=== PATIENT | female | born 1970 | race Caucasian/White ===

== ENCOUNTER → 2016-07-10 | Outpatient (CLI) | payer BC ==
[~2016-07-10] MED LIST: BUTA1CAP17 PO; CIPR-255 PO; CLON0.5T3 PO; HYDR-4079 PO; HYDR-5688 PO; HYDRTAB32 PO; KETO10TA PO; OMEP20CA9 PO; ONDA4TAB10 SL; OXYC-57 PO; RIZA10TA18 PO; SERT1TAB68 PO; TAMS0.4C38 PO; TIZA2CAP PO; TRAM-10 PO
== END | disposition home or self-care (01) ==
LOC: C.PAPS 11:02
PROVIDERS: ATTEND Obstetrics & Gynecology
DX: R87.610 Atypical squamous cells of undetermined significance on cytologic smear of cervix (ASC-US) (principal)

== ENCOUNTER 2016-07-12 11:32 | Emergency (ER) | payer BC ==
[~2016-07-12] VITALS: Ht 165.1 cm; Wt 57.7 kg
[~2016-07-12 11:32] MED LIST changes: -CIPR-255 PO; -HYDR-4079 PO; -HYDR-5688 PO; -KETO10TA PO; -ONDA4TAB10 SL; -OXYC-57 PO; -TAMS0.4C38 PO
[2016-07-12 11:35] VITALS: TEMP 36.9; Ht 165.1 cm; Wt 57.7 kg
[2016-07-12] MEDS ORDERED: KETOROLAC TROMETHAMINE 30 MG/ML VIAL IV STA (11:48)
[2016-07-12] MEDS ORDERED: ACETAMINOPHEN 500 MG TAB PO STA (11:48)
[2016-07-12] MEDS ORDERED: ONDANSETRON INJ 2 MG/ML 2 ML VIAL IV STA (11:48)
[2016-07-12] MEDS ORDERED: HYDROmorphone INJ 1 MG/ML SYR IV STA ×2 (11:48)
[2016-07-12] MEDS ORDERED: SODIUM CHLORIDE 0.9% 1000ML 1,000 ML IV STA (11:48)
[2016-07-12 11:59] LABS: BASO % 0.2 %; BASO ABS # 0.01 K/uL (0-0.2); COMPLETE YES; EOS % 0.8 %; HEMATOCRIT 40.4 % (37-47); LYMPH % 19.9 %; LYMPH ABS # 1.05 K/uL (1.2-3.4); MEAN CELL VOLUME 92.4 fL (80-100); MEAN CORPUSCULAR HGB CONC 34.7 g/dl (32-36); MONO % 7.4 %; NEUT % 71.7 %; PLATELET COUNT 158 K/uL (130-400); RED BLOOD COUNT 4.37 M/uL (4.2-5.4); WHITE BLOOD COUNT 5.27 K/uL (4.8-10.8)
--- NOTE | 2016-07-12 12:07 | EMERGENCY ROOM VISIT NOTE ---
History Report prepared by Carlitos: Francisco Miller Under the Supervision of: Dr. Horace Foster M.D. First contact with patient: 11:41 Chief Complaint: ABDOMINAL PAIN Stated Complaint: SEVERE ABD. PAIN Nursing Triage Summary: abdominal pain started 5 am. denies any n/v/d History of Present Illness The patient is a 46 year old female who presents to the Emergency Room with complaints of abdominal pain that began 7 hours ago. The patient rates her pain an 8/10 in severity. She took an Oxycodone tablet a couple hours ago which helped her fall back asleep. When she woke up, the patient was still having the pain. She denies any nausea, vomiting, or diarrhea. She has her gallbladder and does not have her appendix. She is also experiencing some right flank pain as well. Source of History: patient Onset: 7 hours ago Position: abdomen (RQ) Symptom Intensity: 8/10 Quality: sharp Timing: constant Modifying Factors (Relieving): other (Oxycodone) Associated Symptoms: + back pain (right flank), No diarrhea, No nausea, No vomiting Review of Systems See HPI for pertinent positives & negatives. A total of 10 systems reviewed and were otherwise negative. Past Medical & Surgical Medical Problems: (1) Anxiety (2) Headache (3) Right shoulder surgery Family History FHx: pancreatic cancer Social History Smoking Status: Never Smoker Alcohol Use: occasionally Marital Status: Housing Status: lives with family Occupation Status: employed Current/Historical Medications Scheduled Omeprazole (Prilosec), 20 MG PO QPM Ondasetron Odt (Zofran Odt), 4 MG SL Q6H Rizatriptan Benzoate (Maxalt), 10 MG PO prn Sertraline Hcl (Zoloft), 100 MG PO QPM Tamsulosin Hcl (Flomax), 0.4 MG PO DAILY Scheduled PRN Rhoritktpe-Qwpaulemciukj-Lbdtx (Fioricet), 1 CAP PO DAILY PRN for Migraine Clonazepam (Klonopin), 0.5 MG PO DAILY PRN for Anxiety Hydrocodone/Acetaminophen 10MG/500MG (Lortab 10MG/500MG), 1 TAB PO Q6 PRN for Pain Oxycodone/Acetaminophen 5MG/325MG (Percocet 5MG/325MG), 1-2 TABS PO Q4H PRN for Pain Tizanidine (Zanaflex), 2 MG PO DAILY PRN for Migraine Tramadol (Ultram), 1-2 TAB PO TID PRN for Migraine Allergies Coded Allergies: Diphenhydramine (Verified Allergy, Intermediate, JERKING, 07/12/16) Sumatriptan (Unverified Allergy, Unknown, chest pain, 07/12/16) Physical Exam Vital Signs Date Time Temp Pulse Resp B/P Pulse Ox O2 Delivery O2 Flow Rate FiO2 07/12/16 13:49 73 18 108/68 98 07/12/16 12:36 72 16 114/62 97 Room Air 07/12/16 11:35 36.9 92 18 123/81 97 Room Air Physical Exam CONSTITUTIONAL: Moderate to severe painful distress HEENT: No icterus, moist mucous membranes NECK: No meningismus, trachea is midline. CARDIOVASCULAR: Regular rate, normal perfusion RESPIRATORY: Unlabored breathing. Clear to auscultation. GASTROINTESTINAL: Moderate right sided abdominal pain. BACK: Moderate right sided flank pain. GENITOURINARY: No flank tenderness MUSCULOSKELETAL: Full range of motion NEUROLOGIC: No acute gross focal deficits. PSYCHIATRIC: Normal affect SKIN: Normal for ethnicity. Medical Decision & Procedures ER Provider Diagnostic Interpretation: Radiology results are stated below per my review and radiologist interpretation. CT OF THE ABDOMEN AND PELVIS WITHOUT CONTRAST, STONE PROTOCOL CLINICAL HISTORY: Right flank pain. COMPARISON STUDY: CT of the abdomen and pelvis May 31, 2013. TECHNIQUE: Helical axial images of the abdomen and pelvis were obtained without IV or oral contrast according to renal stone protocol. FINDINGS: There is moderate right hydroureteronephrosis due to a 4 mm distal right ureteral calculus. There is associated mild perinephric and periureteral ureteral infiltration. A right renal calculus is noted, measuring 4 mm. There may be punctate left renal calculi. A few subpleural nodules within visualized portions of the lower lungs are unchanged since CT of May 31, 2013. These are benign. Evaluation of the abdomen and pelvis is suboptimal on this unenhanced exam. The liver, spleen, adrenal glands and pancreas are normal. There is no evidence for a bowel obstruction. There is no lymphadenopathy. The appendix is normal. Sclerotic skeletal lesions are unchanged since prior CT. These are benign. The ovaries are not enlarged. IMPRESSION: 1. 4 mm distal right ureteral calculus with resultant moderate right hydroureteronephrosis. 2. 4 mm right renal calculus. Electronically signed by: Naldo Pereyra M.D. 07/12/2016 12:32 PM Dictated Date/Time: 07/12/2016 12:26 PM Laboratory Results 07/12/16 11:50 Red Blood Count 4.37, Mean Corpuscular Volume 92.4, Mean Corpuscular Hemoglobin 32.0, Mean Corpuscular Hemoglobin Concent 34.7, Mean Platelet Volume 10.0, Neutrophils (%) (Auto) 71.7, Lymphocytes (%) (Auto) 19.9, Monocytes (%) (Auto) 7.4, Eosinophils (%) (Auto) 0.8, Basophils (%) (Auto) 0.2, Neutrophils # (Auto) 3.78, Lymphocytes # (Auto) 1.05, Monocytes # (Auto) 0.39, Eosinophils # (Auto) 0.04, Basophils # (Auto) 0.01 07/12/16 11:50 Test 07/12/16 11:50 White Blood Count 5.27 K/uL (4.8-10.8) Red Blood Count 4.37 M/uL (4.2-5.4) Hemoglobin 14.0 g/dL (12.0-16.0) Hematocrit 40.4 % (37-47) Mean Corpuscular Volume 92.4 fL (80-100) Mean Corpuscular Hemoglobin 32.0 pg (25-34) Mean Corpuscular Hemoglobin Concent 34.7 g/dl (32-36) Platelet Count 158 K/uL (130-400) Mean Platelet Volume 10.0 fL (7.4-10.4) Neutrophils (%) (Auto) 71.7 % Lymphocytes (%) (Auto) 19.9 % Monocytes (%) (Auto) 7.4 % Eosinophils (%) (Auto) 0.8 % Basophils (%) (Auto) 0.2 % Neutrophils # (Auto) 3.78 K/uL (1.4-6.5) Lymphocytes # (Auto) 1.05 K/uL (1.2-3.4) Monocytes # (Auto) 0.39 K/uL (0.11-0.59) Eosinophils # (Auto) 0.04 K/uL (0-0.5) Basophils # (Auto) 0.01 K/uL (0-0.2) RDW Standard Deviation 41.3 fL (36.4-46.3) RDW Coefficient of Variation 12.1 % (11.5-14.5) Immature Granulocyte % (Auto) 0.0 % Immature Granulocyte # (Auto) 0.00 K/uL (0.00-0.02) Urine Color DK YELLOW Urine Appearance CLEAR (CLEAR) Urine pH 5.0 (4.5-7.5) Urine Specific [place] 1.037 (1.000-1.030) Urine Protein NEG (NEG) Urine Glucose (UA) NEG (NEG) Urine Ketones NEG (NEG) Urine Occult Blood 3+ (NEG) Urine Nitrite NEG (NEG) Urine Bilirubin NEG (NEG) Urine Urobilinogen NEG (NEG) Urine Leukocyte Esterase NEG (NEG) Urine WBC (Auto) 5-10 /hpf (0-5) Urine RBC (Auto) >30 /hpf (0-4) Urine Hyaline Casts (Auto) 1-5 /lpf (0-5) Urine Epithelial Cells (Auto) >30 /lpf (0-5) Urine Bacteria (Auto) 1+ (NEG) Anion Gap 9.0 mmol/L (3-11) Est Creatinine Clear Calc Drug Dose 61.9 ml/min Estimated GFR () 77.2 Estimated GFR (Non- 66.6 BUN/Creatinine Ratio 21.1 (10-20) Calcium Level 8.5 mg/dl (8.5-10.1) Labs reviewed by ED physician. Medications Administered Medications (Trade) Dose Ordered Sig/Rosa Route Start Time Stop Time Status Last Admin Dose Admin Acetaminophen 1000 mg 1,000 mg NOW STAT PO 07/12/16 11:48 07/12/16 11:52 DC 07/12/16 12:08 1,000 MG Sodium Chloride (Nss 1000ml) 1,000 ml @ 0 mls/hr Q0M STAT IV 07/12/16 11:48 07/12/16 11:52 DC 07/12/16 12:07 0 MLS/HR Ketorolac Tromethamine (Toradol Inj) 30 mg NOW STAT IV 07/12/16 11:48 07/12/16 11:52 DC 07/12/16 12:07 30 MG Ondansetron HCl (Zofran Inj) 4 mg NOW STAT IV 07/12/16 11:48 07/12/16 11:52 DC 07/12/16 12:06 4 MG Hydromorphone HCl (Dilaudid Inj) 1 mg PRN STAT IV 07/12/16 11:48 07/12/16 11:52 DC 07/12/16 12:06 1 MG ED Course 1141: Past medical records reviewed. The patient was evaluated in room C7. A complete history and physical examination was performed. 1148: Dilaudid Inj 1 mg, Dilaudid Inj 1 mg IV, Zofran Inj 4 mg IV, Toradol Inj 30 mg IV, Sodium Chloride 1000 ml @ 0 mls/hr Wide Open IV, Tylenol Tab 1000 mg PO 1335: Upon reexamination the patient is resting. I discussed results and treatment plan with the patient. She verbalizes agreement and understanding. The patient is ready for discharge. Medical Decision Differential diagnoses include but are not limited to; pyelonephritis and kidney stone. 46-year-old presents to the emergency room acute onset of right-sided flank pain persistent over the last 7 hours without other associated complaints. She has no history of renal stones and does no prior abdominal surgery. She was discretely tender in the right flank assessment CT scan showed a 4 mm stone. She was comfortable on reexamination prior to discharge and counseled regarding the use of her prescriptions. She was given a copy of her CT report and understands to follow-up with urology. Impression Primary Impression: Kidney stone Scribe Attestation The scribe's documentation has been prepared under my direction and personally reviewed by me in its entirety. I confirm that the note above accurately reflects all work, treatment, procedures, and medical decision making performed by me. Departure Information Dispostion Home / Self-Care Prescriptions Tamsulosin Hcl (FLOMAX) 0.4 Mg Cap 0.4 MG PO DAILY, #10 CAP Prov: Horace Foster MD 07/12/16 Ondasetron Odt (ZOFRAN ODT) 4 Mg Tab 4 MG SL Q6H for Nausea, #20 TAB Prov: Horace Foster MD 07/12/16 Oxycodone/Acetaminophen 5MG/325MG (PERCOCET 5MG/325MG) Tab 1-2 TABS PO Q4H Y for Pain, #20 TAB Prov: Horace Foster MD 07/12/16 Referrals Mary Alice Coppola M.D. (PCP) Forms Call Back Authorization, HOME CARE DOCUMENTATION FORM, IMPORTANT VISIT INFORMATION, [facility] Patient Instructions A Signature Page, Kidney Stones - [facility] Additional Instructions FOLLOW-UP WITH UROLOGY. RETURN TO ER FOR WORSENING OR WORRISOME SYMPTOMS
[2016-07-12 12:11] LABS: URINE APPEARANCE CLEAR (CLEAR); URINE BILIRUBIN NEG (NEG); URINE COLOR DK YELLOW; URINE EPITHELIAL CELL AUTO >30 /lpf (0-5); URINE NITRITE NEG (NEG); URINE SPECIFIC GRAVITY 1.037 (1.000-1.030); UROBILINOGEN NEG (NEG); ZZUR CULT IF INDIC CLEAN CATCH YES
[2016-07-12 12:12] LABS: MANUAL MICROSCOPIC REQUIRED? NO; REVIEW REQ? YES
[2016-07-12 12:16] LABS: BUN/CREATININE RATIO 21.1 (10-20); CALCIUM 8.5 mg/dl (8.5-10.1); POTASSIUM 3.5 mmol/L (3.5-5.1)
--- NOTE | 2016-07-12 12:34 | DIAGNOSTIC IMAGING REPORT ---
CT OF THE ABDOMEN AND PELVIS WITHOUT CONTRAST, STONE PROTOCOL CLINICAL HISTORY: Right flank pain. COMPARISON STUDY: CT of the abdomen and pelvis May 31, 2013. TECHNIQUE: Helical axial images of the abdomen and pelvis were obtained without IV or oral contrast according to renal stone protocol. FINDINGS: There is moderate right hydroureteronephrosis due to a 4 mm distal right ureteral calculus. There is associated mild perinephric and periureteral ureteral infiltration. A right renal calculus is noted, measuring 4 mm. There may be punctate left renal calculi. A few subpleural nodules within visualized portions of the lower lungs are unchanged since CT of May 31, 2013. These are benign. Evaluation of the abdomen and pelvis is suboptimal on this unenhanced exam. The liver, spleen, adrenal glands and pancreas are normal. There is no evidence for a bowel obstruction. There is no lymphadenopathy. The appendix is normal. Sclerotic skeletal lesions are unchanged since prior CT. These are benign. The ovaries are not enlarged. IMPRESSION: 1. 4 mm distal right ureteral calculus with resultant moderate right hydroureteronephrosis. 2. 4 mm right renal calculus. Electronically signed by: Naldo Pereyra M.D. 07/12/2016 12:32 PM Dictated Date/Time: 07/12/2016 12:26 PM
[2016-07-12] MEDS ORDERED: OXYC-57 PO (13:30)
[2016-07-12] MEDS ORDERED: TAMS0.4C38 PO (13:31)
[2016-07-12] MEDS ORDERED: ONDA4TAB10 SL (13:31)
[2016-07-12 13:49] VITALS: BP 108/68; PULSE 73; O2SAT 98
[2016-09-06] MEDS ORDERED: HYDR-4079 PO (17:02)
[2016-09-07] MEDS ORDERED: CIPR-255 PO (18:38)
[2016-09-07] MEDS ORDERED: KETO10TA PO (18:38)
[2016-09-07] MEDS ORDERED: HYDR-5688 PO (18:38)
== END 2016-07-12 13:51 | disposition home or self-care (01) ==
LOC: C.EDB 11:34 → C.EDC 13:51
DX: N20.2 Calculus of kidney with calculus of ureter (principal); F41.9 Anxiety disorder, unspecified

== ENCOUNTER → 2016-07-17 | Outpatient (CLI) | payer BC ==
[~2016-07-17] MED LIST changes: +CIPR-255 PO; +HYDR-4079 PO; +HYDR-5688 PO; +KETO10TA PO; +ONDA4TAB10 SL; +OXYC-57 PO; +TAMS0.4C38 PO
--- NOTE | 2016-07-17 16:12 | MAMMOGRAPHY REPORT ---
UNILATERAL RIGHT DIGITAL DIAGNOSTIC MAMMOGRAM TOMOSYNTHESIS AND TARGETED RIGHT ULTRASOUND: 07/17/2016 CLINICAL HISTORY: The patient reports that her physician felt a palpable right breast lump during a routine clinical exam. The patient can feel the lump herself. TECHNIQUE: Breast tomosynthesis in addition to standard 2D mammography was performed. Right CC and MLO 2-D and tomosynthesis images were obtained. COMPARISON: Comparison is made to exams dated: 04/02/2016 mammogram, 03/17/2014 mammogram, 03/19/2015 mammogram, 03/16/2013 mammogram - [facility], 11/08/2008, and 11/03/2008. BREAST COMPOSITION: The tissue of the right breast is heterogeneously dense, which may obscure smal l masses. FINDINGS: A triangle marker guerra the site of the palpable lump in the right upper outer quadrant a nteriorly. There are no suspicious masses, calcifications, or areas of architectural distortion not ed in the right breast. There has been no significant interval change compared to prior exams. Rou nd circumscribed benign-appearing 6 mm mass seen within the right medial breast is stable compared t o prior exams including the 2014 exam. Scattered benign-appearing calcifications are stable. Targeted ultrasound was performed of the area of the palpable lump pointed out by the patient, in th e right breast at 12:00 periareolar region. At the site of the palpable lump there is an oval anech oic circumscribed 6 x 4 x 7 mm mass, consistent with a benign cyst. A few other smaller adjacent be nign cysts were also seen in the right 12:00 periareolar breast. A 7 mm anechoic benign cyst is see n in the right breast at 12:00 subareolar breast. Other benign cysts were seen during the ultrasoun d exam. No suspicious solid masses were evident. IMPRESSION: ACR BI-RADS CATEGORY 2: BENIGN, TARGETED ULTRASOUND ACR BI-RADS CATEGORY 2: BENIGN No suspicious mammographic or sonographic abnormality at the site of the palpable right breast lump pointed out by the patient. A few small benign cysts were seen in the region of the palpable lump, the largest measuring 7 mm. There is no mammographic or targeted sonographic evidence of malignancy. Recommend clinical follow- up for the right breast lump, and recommend routine bilateral screening mammograms which are due Mar. The patient has been verbally notified of the results. Approximately 10% of breast cancers are not detected with mammography. A negative mammographic repor t should not delay biopsy if a clinically suggestive mass is present. Kerry Frazier M.D. ah/:07/17/2016 14:25:39 Stripper And Taper: Saritha GOLDBERG)(Samanta), [facility] letter sent: Normal 1/2 BI-RADS Code: ACR BI-RADS Category 2: Benign Ultrasound BI-RADS: ACR BI-RADS Category 2: Benign
== END | disposition home or self-care (01) ==
LOC: C.MAMM 13:50
PROVIDERS: ATTEND Obstetrics & Gynecology
DX: R92.8 Other abnormal and inconclusive findings on diagnostic imaging of breast (principal)

== ENCOUNTER 2016-09-04 04:14 | Emergency (ER) | payer BC, OTHER ==
[~2016-09-04] VITALS: Ht 165.1 cm; Wt 56.7 kg
[~2016-09-04 04:14] MED LIST changes: -CIPR-255 PO; -HYDR-4079 PO; -HYDR-5688 PO; -KETO10TA PO; -TAMS0.4C38 PO
[2016-09-04 04:25] VITALS: TEMP 36.9; Ht 165.1 cm; Wt 56.7 kg
[2016-09-04] MEDS ORDERED: ONDANSETRON INJ 2 MG/ML 2 ML VIAL IV STA (04:40)
[2016-09-04] MEDS ORDERED: SODIUM CHLORIDE 0.9% 1000ML 1,000 ML IV STA (04:40)
[2016-09-04] MEDS ORDERED: KETOROLAC TROMETHAMINE 30 MG/ML VIAL IV STA (04:40)
[2016-09-04] MEDS ORDERED: HYDROmorphone INJ 1 MG/ML SYR IV STA ×2 (04:40→06:54)
--- NOTE | 2016-09-04 04:42 | EMERGENCY ROOM VISIT NOTE ---
History Report prepared by Carlitos: Krystian Singletary Under the Supervision of: Dr. Velvet Carl D.O. First contact with patient: 04:29 Chief Complaint: ABDOMINAL PAIN Stated Complaint: ABD PAIN History of Present Illness The patient is a 46 year old female who presents to the Emergency Room with complaints of persistent right-sided back pain that started about 12 hours ago. The patient notes that she thinks she is passing a kidney stone. The discomfort started with spasms on the right side of her back. The pain has significantly worsened so she presented to the ED to help manage the discomfort to pass the stone. The patient notes that a few weeks ago she passed a stone and there was another one in her kidney which she thinks is the one she is currently passing. She also complains of nausea, vomiting, and chills. She denies burning with urination or fever. Source of History: patient Onset: 12 hours ago Position: back Quality: other (spasms) Timing: other (persistent) Associated Symptoms: + chills, + nausea, + vomiting, No fevers, No urinary symptoms (denies burning with urination) Review of Systems See HPI for pertinent positives & negatives. A total of 10 systems reviewed and were otherwise negative. Past Medical & Surgical Medical Problems: (1) Anxiety (2) Headache (3) Right shoulder surgery Family History FHx: pancreatic cancer Social History Smoking Status: Never Smoker Alcohol Use: occasionally Marital Status: Housing Status: lives with family Occupation Status: employed Current/Historical Medications Scheduled Omeprazole (Prilosec), 20 MG PO QPM Ondasetron Odt (Zofran Odt), 4 MG SL Q6H Rizatriptan Benzoate (Maxalt), 10 MG PO prn Sertraline Hcl (Zoloft), 100 MG PO QPM Scheduled PRN Apboxhlejd-Tanhcodsrfjdk-Yzdmi (Fioricet), 1 CAP PO DAILY PRN for Migraine Clonazepam (Klonopin), 0.5 MG PO DAILY PRN for Anxiety Hydrocodone/Acetaminophen 10MG/500MG (Lortab 10MG/500MG), 1 TAB PO Q6 PRN for Pain Oxycodone/Acetaminophen 5MG/325MG (Percocet 5MG/325MG), 1-2 TABS PO Q4H PRN for Pain Tizanidine (Zanaflex), 2 MG PO DAILY PRN for Migraine Tramadol (Ultram), 1-2 TAB PO TID PRN for Migraine Allergies Coded Allergies: Diphenhydramine (Verified Allergy, Intermediate, JERKING, 09/04/16) Sumatriptan (Unverified Allergy, Unknown, chest pain, 09/04/16) Physical Exam Vital Signs Date Time Temp Pulse Resp B/P Pulse Ox O2 Delivery O2 Flow Rate FiO2 09/04/16 07:55 88 17 107/58 96 Room Air 09/04/16 07:23 90 15 102/59 97 Room Air 09/04/16 06:20 89 16 107/61 99 Room Air 09/04/16 04:25 36.9 101 18 102/64 98 Room Air Physical Exam General: Appears uncomfortable. HEENT: Head - normocephalic and atraumatic Pupils are equal, round, and reactive to light. Extraocular eye muscles are intact, and sclera are anicteric. Nose - moist nasal mucosa without discharge. Mouth - moist buccal mucosa. Oropharynx is nonerythematous and there is no tonsillar exudate or edema noted. Neck: Supple; no JVD, nuchal rigidity, cervical lymphadenopathy. Back: Reproducible right CVA tenderness. Heart: Regular rate and rhythm. There is a normal S1 and S2 with no murmurs, clicks, or gallops appreciated. Lungs: Clear to auscultation bilaterally with no wheezes, rales, or rhonchi. Abdomen: Soft, completely nontender, nondistended, with good bowel sounds. There are no palpable pulsatile masses or hepatosplenomegaly. There is no guarding, rigidity, or rebound noted. Extremities: No evidence of cyanosis, clubbing, or edema. There are easily palpable peripheral pulses. Skin: warm and dry with good turgor and no rashes. Medical Decision & Procedures ER Provider Diagnostic Interpretation: Radiology results as stated below per my review and the radiologist's interpretation: US Renal 44 mm calculus noted within the mid right kidney with moderate hydroureteronephrosis extending to the mid ureter. The distal ureter was not visualized. Findings are concerning for an obstructing lesion. Consider CT of the abdomen and pelvis for further evaluation if clinically indicated. Small amount of right perirenal fluid. The left kidney is unremarkable. The bladder was visualized secondary to bowel gas. ABDOMEN AND PELVIS CT WITHOUT CONTRAST CT DOSE: 433.78 mGy.cm HISTORY: Flank pain eval for right-sided obstructing lesion TECHNIQUE: Multiaxial CT images of the abdomen and pelvis were performed without the use of intravenous and oral contrast according to the standard department stone protocol. COMPARISON STUDY: 07/12/2016 FINDINGS: Lung bases are clear. There is a 4 mm obstructing calculus distal right ureter slightly proximal to the right ureteral vesicle junction. Moderate right hydroureteronephrosis. Left kidney is unremarkable. Bowel pattern is nonobstructive. The appendix is normal. Liver spleen and pancreas are unremarkable. IMPRESSION: 4 mm obstructing calculus distal right ureter at and are slightly proximal to the right ureterovesical junction. Moderate right hydroureteronephrosis. Otherwise negative study Electronically signed by: Mendez Gramajo M.D. 09/04/2016 7:31 AM Dictated Date/Time: 09/04/2016 7:26 AM Laboratory Results 09/04/16 04:35 Red Blood Count 4.37, Mean Corpuscular Volume 89.7, Mean Corpuscular Hemoglobin 31.6, Mean Corpuscular Hemoglobin Concent 35.2, Mean Platelet Volume 9.7, Neutrophils (%) (Auto) 81.8, Lymphocytes (%) (Auto) 11.7, Monocytes (%) (Auto) 5.1, Eosinophils (%) (Auto) 1.2, Basophils (%) (Auto) 0.1, Neutrophils # (Auto) 5.94, Lymphocytes # (Auto) 0.85, Monocytes # (Auto) 0.37, Eosinophils # (Auto) 0.09, Basophils # (Auto) 0.01 09/04/16 04:35 Test 09/04/16 04:35 09/04/16 04:52 White Blood Count 7.27 K/uL (4.8-10.8) Red Blood Count 4.37 M/uL (4.2-5.4) Hemoglobin 13.8 g/dL (12.0-16.0) Hematocrit 39.2 % (37-47) Mean Corpuscular Volume 89.7 fL (80-100) Mean Corpuscular Hemoglobin 31.6 pg (25-34) Mean Corpuscular Hemoglobin Concent 35.2 g/dl (32-36) Platelet Count 148 K/uL (130-400) Mean Platelet Volume 9.7 fL (7.4-10.4) Neutrophils (%) (Auto) 81.8 % Lymphocytes (%) (Auto) 11.7 % Monocytes (%) (Auto) 5.1 % Eosinophils (%) (Auto) 1.2 % Basophils (%) (Auto) 0.1 % Neutrophils # (Auto) 5.94 K/uL (1.4-6.5) Lymphocytes # (Auto) 0.85 K/uL (1.2-3.4) Monocytes # (Auto) 0.37 K/uL (0.11-0.59) Eosinophils # (Auto) 0.09 K/uL (0-0.5) Basophils # (Auto) 0.01 K/uL (0-0.2) RDW Standard Deviation 38.5 fL (36.4-46.3) RDW Coefficient of Variation 11.8 % (11.5-14.5) Immature Granulocyte % (Auto) 0.1 % Immature Granulocyte # (Auto) 0.01 K/uL (0.00-0.02) Anion Gap 9.0 mmol/L (3-11) Est Creatinine Clear Calc Drug Dose 51.3 ml/min Estimated GFR () 61.9 Estimated GFR (Non- 53.4 BUN/Creatinine Ratio 15.1 (10-20) Calcium Level 8.3 mg/dl (8.5-10.1) Total Bilirubin 0.4 mg/dl (0.2-1) Direct Bilirubin < 0.1 mg/dl (0-0.2) Aspartate Amino Transf (AST/SGOT) 12 U/L (15-37) Alanine Aminotransferase (ALT/SGPT) 16 U/L (12-78) Alkaline Phosphatase 45 U/L (45-117) Total Protein 7.4 gm/dl (6.4-8.2) Albumin 4.4 gm/dl (3.4-5.0) Urine Color DK YELLOW Urine Appearance CLOUDY (CLEAR) Urine pH 5.0 (4.5-7.5) Urine Specific [place] 1.044 (1.000-1.030) Urine Protein NEG (NEG) Urine Glucose (UA) NEG (NEG) Urine Ketones 1+ (NEG) Urine Occult Blood NEG (NEG) Urine Nitrite NEG (NEG) Urine Bilirubin NEG (NEG) Urine Urobilinogen NEG (NEG) Urine Leukocyte Esterase NEG (NEG) Urine WBC (Auto) 5-10 /hpf (0-5) Urine RBC (Auto) 5-10 /hpf (0-4) Urine Hyaline Casts (Auto) 10-30 /lpf (0-5) Urine Epithelial Cells (Auto) >30 /lpf (0-5) Urine Bacteria (Auto) 1+ (NEG) Urine Renal Epithelial Cells /lpf (0-5) Urine Crystals CALCIUM OXALATE (NONE Laboratory results per my review. Medications Administered Medications (Trade) Dose Ordered Sig/Rosa Route Start Time Stop Time Status Last Admin Dose Admin Sodium Chloride (Nss 1000ml) 1,000 ml @ 999 mls/hr Q1H1M STAT IV 09/04/16 04:40 09/04/16 05:40 DC 09/04/16 04:49 999 MLS/HR Ketorolac Tromethamine (Toradol Inj) 30 mg NOW STAT IV 09/04/16 04:40 09/04/16 04:42 DC 09/04/16 04:49 30 MG Ondansetron HCl (Zofran Inj) 4 mg NOW STAT IV 09/04/16 04:40 09/04/16 04:42 DC 09/04/16 04:49 4 MG Hydromorphone HCl (Dilaudid Inj) 1 mg NOW STAT IV 09/04/16 04:40 09/04/16 04:42 DC 09/04/16 04:49 1 MG Hydromorphone HCl (Dilaudid Inj) 1 mg NOW STAT IV 09/04/16 06:54 09/04/16 06:55 DC 09/04/16 07:00 1 MG Procedure Dilaudid Inj IV Zofran Inj IV Toradol Inj IV NSS IV Dilaudid IV ECG Indication: other Rate (beats per minute): 64 Rhythm: normal sinus Findings: no acute ischemic change, no ectopy ED Course 0434: Past medical records reviewed. The patient was evaluated in room B3. A complete history and physical exam was performed. An IV lock was initiated and labs are drawn as above. 0440: Ordered Dilaudid Inj 1 mg IV, Zofran Inj 4 mg IV, Toradol Inj 30 mg IV. The patient went for an ultrasound 0635: I reevaluated the patient at this time and notes that after the pain mediation her discomfort is down to a 3 and she feels much better. The patient then went for a CT scan of the abdomen/pelvis 0653: At this time, the patient was having more pain. 0654: Ordered Dilaudid Inj 1 mg IV. 0715: The patient was comfortable at this time and wished to go home. She has oral pain medication at home to take. Medical Decision The patient is a 46 year old female who presents to the Emergency Room with complaints of persistent right-sided back pain. Differential diagnoses include: obstructive uropathy, uretal colic, pyelonephritis. Labs reviewed by me: Normal wbcs stable h&h normal renal function normal glucose and lfts urinalysis positive for calcium oxalate crystals 1+ ketones 1+ bacteria negative nitrate negative leukocyte esterase The patient and her first kidney stone a couple weeks ago. She was known to have a remaining right sided stone. Ultrasound showed a questionable obstructing stone. They recommended CT scan. The patient went for CT scan which did reveal a 4 mm obstructing stone. I've encouraged the patient to take plenty of clear liquids and use pain meds over the 4 hours. If symptoms are persisting, she should return to the ER. The patient will need to follow-up with urology. She was given appropriate information. If she develops worsening pain, fever, or vomiting, she was told to return to the ER immediately. Impression Primary Impression: Hydronephrosis with urinary obstruction due to ureteral calculus Scribe Attestation The scribe's documentation has been prepared under my direction and personally reviewed by me in its entirety. I confirm that the note above accurately reflects all work, treatment, procedures, and medical decision making performed by me. Departure Information Dispostion Home / Self-Care Referrals No Doctor, Assigned (PCP) Patient Instructions Kidney Stones Expectant Therapy, My [facility] Additional Instructions Rest. Take pain meds at home as needed. Make an appointment at Urology. Return to the ER if you develop a fever or vomiting
[2016-09-04 05:21] LABS: URINE APPEARANCE CLOUDY (CLEAR); URINE BILIRUBIN NEG (NEG); URINE COLOR DK YELLOW; URINE EPITHELIAL CELL AUTO >30 /lpf (0-5); URINE NITRITE NEG (NEG); URINE SPECIFIC GRAVITY 1.044 (1.000-1.030); UROBILINOGEN NEG (NEG)
[2016-09-04 05:23] LABS: ALT/SGPT 16 U/L (12-78); AST/SGOT 12 U/L (15-37); BLOOD UREA NITROGEN 18 mg/dl (7-18); BUN/CREATININE RATIO 15.1 (10-20); CALCIUM 8.3 mg/dl (8.5-10.1); CARBON DIOXIDE 26 mmol/L (21-32); CHLORIDE 107 mmol/L (98-107); GLUCOSE 111 mg/dl (70-99); POTASSIUM 3.3 mmol/L (3.5-5.1); SODIUM 142 mmol/L (136-145)
[2016-09-04 05:26] LABS: ALKALINE PHOSPHATASE 45 U/L (45-117)
[2016-09-04 05:26] LABS: REVIEW REQ? YES
[2016-09-04 05:27] LABS: MANUAL MICROSCOPIC REQUIRED? NO
[2016-09-04 06:41] LABS: BASO % 0.1 %; BASO ABS # 0.01 K/uL (0-0.2); COMPLETE YES; EOS % 1.2 %; HEMATOCRIT 39.2 % (37-47); IG% 0.1 %; LYMPH % 11.7 %; LYMPH ABS # 0.85 K/uL (1.2-3.4); MEAN CELL VOLUME 89.7 fL (80-100); MEAN CORPUSCULAR HEMOGLOBIN 31.6 pg (25-34); MEAN CORPUSCULAR HGB CONC 35.2 g/dl (32-36); MEAN PLATELET VOLUME 9.7 fL (7.4-10.4); MONO % 5.1 %; NEUT % 81.8 %; PLATELET COUNT 148 K/uL (130-400); RED BLOOD COUNT 4.37 M/uL (4.2-5.4); WHITE BLOOD COUNT 7.27 K/uL (4.8-10.8)
--- NOTE | 2016-09-04 06:46 | DIAGNOSTIC IMAGING REPORT ---
RENAL ULTRASOUND HISTORY: Obstruction eval for right ureteral stone and hydronephrosis COMPARISON: None. FINDINGS: Right kidney: Moderate right hydroureteronephrosis. Nonobstructing 4 mm calcification mid right kidney. Trace perinephric fluid Normal corticomedullary differentiation and cortical thickness. Left kidney: Maximum dimension 10.6 cm. No evidence for hydronephrosis. Normal corticomedullary differentiation and cortical thickness. Bladder: No bladder wall thickening. The bilateral ureteral jets were identified. IMPRESSION: Right hydroureteronephrosis. Nonobstructing right renal calcification. Trace perinephric fluid Electronically signed by: Mendez Gramajo M.D. 09/04/2016 6:44 AM Dictated Date/Time: 09/04/2016 6:43 AM
--- NOTE | 2016-09-04 07:32 | DIAGNOSTIC IMAGING REPORT ---
ABDOMEN AND PELVIS CT WITHOUT CONTRAST CT DOSE: 433.78 mGy.cm HISTORY: Flank pain eval for right-sided obstructing lesion TECHNIQUE: Multiaxial CT images of the abdomen and pelvis were performed without the use of intravenous and oral contrast according to the standard department stone protocol. COMPARISON STUDY: 07/12/2016 FINDINGS: Lung bases are clear. There is a 4 mm obstructing calculus distal right ureter slightly proximal to the right ureteral vesicle junction. Moderate right hydroureteronephrosis. Left kidney is unremarkable. Bowel pattern is nonobstructive. The appendix is normal. Liver spleen and pancreas are unremarkable. IMPRESSION: 4 mm obstructing calculus distal right ureter at and are slightly proximal to the right ureterovesical junction. Moderate right hydroureteronephrosis. Otherwise negative study Electronically signed by: Mendez Gramajo M.D. 09/04/2016 7:31 AM Dictated Date/Time: 09/04/2016 7:26 AM
[2016-09-04 07:55] VITALS: BP 107/58; PULSE 88; O2SAT 96
== END 2016-09-04 08:00 | disposition home or self-care (01) ==
LOC: C.EDB 04:15
DX: N13.1 Hydronephrosis with ureteral stricture, not elsewhere classified (principal); F41.9 Anxiety disorder, unspecified; Z80.9 Family history of malignant neoplasm, unspecified; Z79.899 Other long term (current) drug therapy

== ENCOUNTER 2016-09-06 16:39 | Inpatient (IN) | payer BC ==
[~2016-09-06] VITALS: Ht 165.1 cm; Wt 57.8 kg
[2016-09-06] MEDS ORDERED: ONDANSETRON INJ 2 MG/ML 2 ML VIAL IV STA (16:58)
[2016-09-06] MEDS ORDERED: HYDROmorphone INJ 1 MG/ML SYR IV STA (16:58)
[2016-09-06] MEDS ORDERED: KETOROLAC TROMETHAMINE 30 MG/ML VIAL IV STA (16:58)
[2016-09-06] MEDS ORDERED: SODIUM CHLORIDE 0.9% 1000ML 1,000 ML IV SCH (17:00)
[2016-09-06] MEDS ORDERED: HYDR-4079 PO ×2 (17:02)
--- NOTE | 2016-09-06 17:16 | EMERGENCY ROOM VISIT NOTE ---
History First contact with patient: 16:50 Chief Complaint: KIDNEY STONE Stated Complaint: CAN'T PASS KIDNEY STONE History of Present Illness The patient is a 46 year old female who presents to the Emergency Room with complaints of intractable pain from a right-sided kidney stone. She first passed a kidney stone 3 weeks ago, and was found to have another kidney stone remaining which caused her severe pain. She came to the ED overnight 3 days ago with severe right-sided pain. CAT scan was completed and showed a 4 mm obstructing stone in the right ureterovesicular junction. She was treated with Dilaudid, Toradol, and Zofran, and this initially resolved her symptoms. On she was continuing to suffer from nausea and so was taking Zofran, and also taking pain medications every 2 hours. She reports she feels unwell on these pain medications, and describes associated drowsiness and itch, but is allergic to Benadryl. Her pain was persistent throughout today so she decided to come back to the ED. She has not had any fevers at any point. She has never seen a urologist but she has an appointment with Dr. Quiroga on Thursday. 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 Her PCP is Dr. Coppola. Review of Systems See HPI for pertinent positives & negatives. A total of 10 systems reviewed and were otherwise negative. Past Medical/Surgical History Medical Problems: (1) Anxiety (2) Headache (3) Right shoulder surgery (4) Ureteral stone with hydronephrosis Family History FHx: pancreatic cancer Social History Smoking Status: Current Every Day Smoker Alcohol Use: occasionally Marital Status: Housing Status: lives with family Occupation Status: employed Current/Historical Medications Scheduled Omeprazole (Prilosec), 20 MG PO QPM Ondasetron Odt (Zofran Odt), 4 MG SL Q6H Rizatriptan Benzoate (Maxalt), 10 MG PO prn Sertraline Hcl (Zoloft), 100 MG PO QPM Scheduled PRN Srnfuxvngy-Nvpclyzypmwlb-Kwtva (Fioricet), 1 CAP PO DAILY PRN for Migraine Clonazepam (Klonopin), 0.5 MG PO DAILY PRN for Anxiety Hydrocodone/Acetaminophen 10MG/325MG ([place] 10MG/325MG), 1-2 TABS PO Q6H PRN for Pain Tizanidine (Zanaflex), 2 MG PO DAILY PRN for Migraine Tramadol (Ultram), 1-2 TAB PO TID PRN for Migraine Allergies Coded Allergies: Diphenhydramine (Verified Allergy, Intermediate, JERKING, 09/06/16) Sumatriptan (Unverified Allergy, Unknown, chest pain, 09/06/16) Physical Exam Vital Signs Date Time Temp Pulse Resp B/P Pulse Ox O2 Delivery O2 Flow Rate FiO2 09/06/16 16:42 36.9 99 20 122/68 98 Room Air Physical Exam GENERAL: Awake, alert, well-appearing, in moderate distress HENT: Normocephalic, atraumatic. Oropharynx unremarkable. EYES: Normal conjunctiva. Sclera non-icteric. NECK: Supple. No nuchal rigidity. FROM. No JVD. RESPIRATORY: Clear to auscultation. CARDIAC: Regular rate, normal rhythm. Extremities warm and well perfused. Pulses equal. ABDOMEN: Tenderness to right side of abdomen diffusely, with guarding. Bowel sounds active MUSCULOSKELETAL: Chest examination reveals no tenderness. The back is symmetrical on inspection without obvious abnormality. There is no CVA tenderness to palpation. No joint edema. LOWER EXTREMITIES: Calves are equal size bilaterally and non-tender. No edema. No discoloration. NEURO: Normal sensorium. No sensory or motor deficits noted. SKIN: No rash or jaundice noted. Medical Decision & Procedures ER Provider Diagnostic Interpretation: Ultrasound from 09/03 (last ED visit) IMPRESSION: Right hydroureteronephrosis. Nonobstructing right renal calcification. Trace perinephric fluid CT from 09/03 IMPRESSION: 4 mm obstructing calculus distal right ureter at and are slightly proximal to the right ureterovesical junction. Moderate right hydroureteronephrosis. Otherwise negative study Laboratory Results 09/06/16 17:20 Red Blood Count 3.99, Mean Corpuscular Volume 92.5, Mean Corpuscular Hemoglobin 31.8, Mean Corpuscular Hemoglobin Concent 34.4, Mean Platelet Volume 9.9, Neutrophils (%) (Auto) 81.0, Lymphocytes (%) (Auto) 11.2, Monocytes (%) (Auto) 5.8, Eosinophils (%) (Auto) 1.6, Basophils (%) (Auto) 0.2, Neutrophils # (Auto) 4.48, Lymphocytes # (Auto) 0.62, Monocytes # (Auto) 0.32, Eosinophils # (Auto) 0.09, Basophils # (Auto) 0.01 09/06/16 17:20 Test 09/06/16 16:55 09/06/16 17:20 Urine Color YELLOW Urine Appearance CLEAR (CLEAR) Urine pH 5.0 (4.5-7.5) Urine Specific [place] 1.017 (1.000-1.030) Urine Protein NEG (NEG) Urine Glucose (UA) NEG (NEG) Urine Ketones TRACE (NEG) Urine Occult Blood 2+ (NEG) Urine Nitrite NEG (NEG) Urine Bilirubin NEG (NEG) Urine Urobilinogen NEG (NEG) Urine Leukocyte Esterase TRACE (NEG) Urine WBC (Auto) 5-10 /hpf (0-5) Urine RBC (Auto) 0-4 /hpf (0-4) Urine Hyaline Casts (Auto) 1-5 /lpf (0-5) Urine Epithelial Cells (Auto) >30 /lpf (0-5) Urine Bacteria (Auto) 1+ (NEG) Urine Yeast (Auto) (NONE PRSENT) White Blood Count 5.53 K/uL (4.8-10.8) Red Blood Count 3.99 M/uL (4.2-5.4) Hemoglobin 12.7 g/dL (12.0-16.0) Hematocrit 36.9 % (37-47) Mean Corpuscular Volume 92.5 fL (80-100) Mean Corpuscular Hemoglobin 31.8 pg (25-34) Mean Corpuscular Hemoglobin Concent 34.4 g/dl (32-36) Platelet Count 123 K/uL (130-400) Mean Platelet Volume 9.9 fL (7.4-10.4) Neutrophils (%) (Auto) 81.0 % Lymphocytes (%) (Auto) 11.2 % Monocytes (%) (Auto) 5.8 % Eosinophils (%) (Auto) 1.6 % Basophils (%) (Auto) 0.2 % Neutrophils # (Auto) 4.48 K/uL (1.4-6.5) Lymphocytes # (Auto) 0.62 K/uL (1.2-3.4) Monocytes # (Auto) 0.32 K/uL (0.11-0.59) Eosinophils # (Auto) 0.09 K/uL (0-0.5) Basophils # (Auto) 0.01 K/uL (0-0.2) RDW Standard Deviation 40.6 fL (36.4-46.3) RDW Coefficient of Variation 11.9 % (11.5-14.5) Immature Granulocyte % (Auto) 0.2 % Immature Granulocyte # (Auto) 0.01 K/uL (0.00-0.02) Anion Gap 10.0 mmol/L (3-11) Est Creatinine Clear Calc Drug Dose 51.6 ml/min Estimated GFR () 61.9 Estimated GFR (Non- 53.4 BUN/Creatinine Ratio 9.8 (10-20) Calcium Level 8.3 mg/dl (8.5-10.1) Medications Administered Medications (Trade) Dose Ordered Sig/Rosa Route Start Time Stop Time Status Last Admin Dose Admin Sodium Chloride (Nss 1000ml) 1,000 ml @ 999 mls/hr Q1H1M IV 09/06/16 17:00 09/06/16 17:49 DC 09/06/16 17:27 999 MLS/HR Hydromorphone HCl (Dilaudid Inj) 1 mg NOW STAT IV 09/06/16 16:58 09/06/16 17:00 DC 09/06/16 17:26 1 MG Ketorolac Tromethamine (Toradol Inj) 30 mg NOW STAT IV 09/06/16 16:58 09/06/16 17:00 DC 09/06/16 17:27 30 MG Ondansetron HCl 4 mg 4 mg NOW STAT IV 09/06/16 16:58 09/06/16 17:00 DC 09/06/16 17:26 4 MG Sodium Chloride (Nss 1000ml) 1,000 ml @ 125 mls/hr Q8H IV 09/06/16 18:30 10/06/16 18:29 09/07/16 02:32 125 MLS/HR Hydromorphone HCl (Dilaudid Inj) 0.5 mg Q2HWA PRN IV 09/06/16 18:30 09/20/16 18:29 09/07/16 05:37 0.5 MG ED Course 16:58: The patient was examined in room C3. A complete history and physical were performed. A ordered a CBC, CRP, urinalysis, IV Dilaudid 1 mg, 30 mg Toradol IV, ondansetron 4 mg IV. 17:09: Dr Farmer evaluated the patient. I ordered a KUB as well. 17:30: I discussed with the patient that her intractable pain would likely require admission, as she doesnt seem safe to be sent home right now. She agreed. 17:58: I discussed the case with case management, she will be admitted due to hydronephrosis and intractable pain. I discussed the case with Dr. Reyna and Dr. Walters of the [facility] Hospitalist Service, they will accept the patient. Medical Decision This is a 46-year-old female who presents with intractable pain from right sided nephrolithiasis from a known 4 mm right-sided kidney stone. Differential includes: infected kidney stone, nephrolithiasis, intractable pain, dehydration , or UTI. She has tried to manage her pain at home but failed. She has persistent nausea. She has not had a fever throughout the entire course. We ordered a KUB to evaluate the placement of the stone. She has had right sided hydronephrosis from the stone, and though she tried to pass it at home, has been unable to do so. Her pain only slightly improved with Toradol, Dilaudid, and Zofran. Her KUB did not show a bowel obstruction and that the stone was in the same place as before. She will be admitted for intractable pain, hydronephrosis, and for evaluation by Urology. She was admitted to [facility] Hospitalist Service. Impression Primary Impression: Kidney stone on right side Departure Information Dispostion Being Evaluated By Hospitalist Condition GOOD Referrals Mary Alice Coppola M.D. (PCP) Patient Instructions My [facility] Resident Tracking Resident Involvement: Resident Care Provided Care Provided: Adult ED
[2016-09-06 17:26] LABS: URINE APPEARANCE CLEAR (CLEAR); URINE BILIRUBIN NEG (NEG); URINE COLOR YELLOW; URINE EPITHELIAL CELL AUTO >30 /lpf (0-5); URINE NITRITE NEG (NEG); URINE SPECIFIC GRAVITY 1.017 (1.000-1.030); UROBILINOGEN NEG (NEG); ZZUR CULT IF INDIC CLEAN CATCH YES
[2016-09-06 17:28] LABS: MANUAL MICROSCOPIC REQUIRED? NO; REVIEW REQ? YES
[2016-09-06 17:29] LABS: BASO % 0.2 %; BASO ABS # 0.01 K/uL (0-0.2); COMPLETE YES; EOS % 1.6 %; HEMATOCRIT 36.9 % (37-47); IG% 0.2 %; LYMPH % 11.2 %; LYMPH ABS # 0.62 K/uL (1.2-3.4); MEAN CELL VOLUME 92.5 fL (80-100); MEAN CORPUSCULAR HEMOGLOBIN 31.8 pg (25-34); MEAN CORPUSCULAR HGB CONC 34.4 g/dl (32-36); MEAN PLATELET VOLUME 9.9 fL (7.4-10.4); MONO % 5.8 %; PLATELET COUNT 123 K/uL (130-400); RED BLOOD COUNT 3.99 M/uL (4.2-5.4); WHITE BLOOD COUNT 5.53 K/uL (4.8-10.8)
[2016-09-06 17:50] LABS: BUN/CREATININE RATIO 9.8 (10-20); CALCIUM 8.3 mg/dl (8.5-10.1); CREATININE 1.2 mg/dl (0.60-1.20); POTASSIUM 4.1 mmol/L (3.5-5.1)
--- NOTE | 2016-09-06 18:09 | History and Physical ---
History & Physical Date & Time of Service: Sep 06, 2016 at 17:50 Chief Complaint: Can't Pass Kidney Stone Primary Care Physician: Mary Alice Coppola M.D. History of Present Illness Source: patient Patient is a 46 year old female with known kidney stones presents with a 3 day history of right sided back pain. Thursday evening it started in her right buttocks and then radiated to the right back as well as the right lower quadrant of the abdomen, almost thinking she had appendicitis. Now has increasingly moved more towards the right upper quadrant of the abdomen. She came to the ED at 3am on , they did an US that showed right sided hydroureteronephrosis with a nonobstructing right renal calcification. She then has a CT that showed a 4 mm obstructing calculus distal right ureter at and are slightly proximal to the right ureterovesical junction with moderate right hydroureteronephrosis. She was sent home and told to take pain medications, and she decided to take flomax as well. The patient has had constant pain requiring pain medications every 2 hours, and she woke up today thinking the pain had improved but it continuously worsened throughout the day so she decided to come to the ED. 8 weeks ago she had a previous ureteral stone, for which she was sent home and it passed spontaneously. The size of that stone was 4 m as well. Patient denies dysuria, burning, frequency, or blood in her urine. She does appreciate chills on and off, some nausea and vomiting on morning, and she has been taking Zofran since. Past Medical/Surgical History Medical Problems: (1) Anxiety Status: Chronic (2) Headache Status: Chronic (3) Right shoulder surgery Status: Resolved Family History Relation not specified for: FHx: pancreatic cancer Mother: Scleroderma Father: Stroke Brother: from Pancreatic Cancer Social History Smoking Status: Never Smoker Alcohol Use: none Drug Use: none Marital Status: Occupational Status: employed Immunizations History of Influenza Vaccine: Yes History of Tetanus Vaccine?: Yes Multi-Drug Resistant Organisms History of MDRO: No Allergies Coded Allergies: Diphenhydramine (Verified Allergy, Intermediate, JERKING, 09/06/16) Sumatriptan (Unverified Allergy, Unknown, chest pain, 09/06/16) Home Medications Scheduled Omeprazole (Prilosec), 20 MG PO QPM Ondasetron Odt (Zofran Odt), 4 MG SL Q6H Rizatriptan Benzoate (Maxalt), 10 MG PO prn Sertraline Hcl (Zoloft), 100 MG PO QPM Scheduled PRN Hykliwwlkj-Dtvczmozqcnhi-Uaajc (Fioricet), 1 CAP PO DAILY PRN for Migraine Clonazepam (Klonopin), 0.5 MG PO DAILY PRN for Anxiety Hydrocodone/Acetaminophen 10MG/325MG ([place] 10MG/325MG), 1-2 TABS PO Q6H PRN for Pain Tizanidine (Zanaflex), 2 MG PO DAILY PRN for Migraine Tramadol (Ultram), 1-2 TAB PO TID PRN for Migraine Review of Systems Constitutional: + chills, No fever Cardiovascular: No chest pain Abdomen: + nausea, + pain, + vomiting Genitourinary - Female: No dysuria, No hematuria, No urinary frequency, No urinary incontinence, No urinary retention, No urinary urgency Physical Exam Vital Signs Date Time Temp Pulse Resp B/P Pulse Ox O2 Delivery O2 Flow Rate FiO2 09/06/16 16:42 36.9 99 20 122/68 98 Room Air General Appearance: WD/WN, + mild distress Respiratory/Chest: chest non-tender, lungs clear, normal breath sounds Cardiovascular: regular rate, rhythm, no edema, no gallop, no murmur Abdomen/GI: soft, + tenderness (Right Sided Tenderness to palpation) Back: + right CVA tenderness Extremities/Musculoskelatal: no calf tenderness Neurologic/Psych: alert, normal mood/affect, normal reflexes, oriented x 3 Diagnostics Laboratory Results Results Past 24 Hours Test 09/06/16 16:55 09/06/16 17:20 Range/Units Urine Color YELLOW Urine Appearance CLEAR CLEAR Urine pH 5.0 4.5-7.5 Urine Specific [place] 1.017 1.000-1.030 Urine Protein NEG NEG Urine Glucose (UA) NEG NEG Urine Ketones TRACE NEG Urine Occult Blood 2+ NEG Urine Nitrite NEG NEG Urine Bilirubin NEG NEG Urine Urobilinogen NEG NEG Urine Leukocyte Esterase TRACE NEG White Blood Count 5.53 4.8-10.8 K/uL Red Blood Count 3.99 4.2-5.4 M/uL Hemoglobin 12.7 12.0-16.0 g/dL Hematocrit 36.9 37-47 % Mean Corpuscular Volume 92.5 80-100 fL Mean Corpuscular Hemoglobin 31.8 25-34 pg Mean Corpuscular Hemoglobin Concent 34.4 32-36 g/dl Platelet Count 123 130-400 K/uL Mean Platelet Volume 9.9 7.4-10.4 fL Neutrophils (%) (Auto) 81.0 % Lymphocytes (%) (Auto) 11.2 % Monocytes (%) (Auto) 5.8 % Eosinophils (%) (Auto) 1.6 % Basophils (%) (Auto) 0.2 % Neutrophils # (Auto) 4.48 1.4-6.5 K/uL Lymphocytes # (Auto) 0.62 1.2-3.4 K/uL Monocytes # (Auto) 0.32 0.11-0.59 K/uL Eosinophils # (Auto) 0.09 0-0.5 K/uL Basophils # (Auto) 0.01 0-0.2 K/uL RDW Standard Deviation 40.6 36.4-46.3 fL RDW Coefficient of Variation 11.9 11.5-14.5 % Immature Granulocyte % (Auto) 0.2 % Immature Granulocyte # (Auto) 0.01 0.00-0.02 K/uL Sodium Level 141 136-145 mmol/L Potassium Level 4.1 3.5-5.1 mmol/L Chloride Level 108 98-107 mmol/L Carbon Dioxide Level 23 21-32 mmol/L Anion Gap 10.0 3-11 mmol/L Blood Urea Nitrogen 12 7-18 mg/dl Creatinine 1.20 0.60-1.20 mg/dl Est Creatinine Clear Calc Drug Dose 51.6 ml/min Estimated GFR () 61.9 Estimated GFR (Non- 53.4 BUN/Creatinine Ratio 9.8 10-20 Random Glucose 96 70-99 mg/dl Calcium Level 8.3 8.5-10.1 mg/dl Microbiology Results 09/06/16 Urine Culture, Received Pending Impression Assessment and Plan Patient is a 46 year old female that presents with intractable pain 2/2 to a right sided ureteral stone 1) Right Sided Ureteral Stone - Repeat CT Scan Abd/Pelvis without contract - Previous CT scan shows 4mm stone at ureterovesicular junction - IV Fluids NS 125ml/hr - Dilaudid 0.5mg q2h - Toradol 30mg q6h - Acetaminophone 650mg q6h - Urology Consult - Regular Diet if no abnormalities on CT Scan, NPO after midnight - Zofran PRN 2) Diet - Regular Diet - NPO after midnight 3) Code Status - Full resuscitation Level of Care Med/Surg Resuscitation Status FULL RESUSCITATION VTE Prophylaxis VTE Risk Assessment Done? Y/N: Yes Risk Level: Moderate Given or contraindicated: SCD's
[2016-09-06] MEDS ORDERED: ACETAMINOPHEN 325 MG TAB PO PRN (18:30)
[2016-09-06] MEDS ORDERED: ONDANSETRON INJ 2 MG/ML 2 ML VIAL IV PRN (18:30)
[2016-09-06] MEDS ORDERED: MAGNESIUM HYDROXIDE SUSP 30 ML UDC PO PRN (18:30)
[2016-09-06] MEDS ORDERED: ALUMINUM/MAGNESIUM/SIMETH (MAALOX MAX) 30 ML UDC PO PRN (18:30)
--- NOTE | 2016-09-06 19:08 | EMERGENCY ROOM VISIT NOTE ---
ED Visit Note First contact with patient: 16:50 I have personally evaluated this patient examined her and reviewed the pertinent labs and data. I have discussed the case with the resident physician and agree with the plan. Please refer to the PA note This patient comes in as described above. She is having right flank pain.. She has a known kidney stone there and was seen here a couple days ago she had a CAT scan which is a 4 mm distal stone. She has nothing to suggest infection. IV access established and she was hydrated IV normal saline and was given IV Dilaudid and IV Toradol and she seems a doing better but do think I do she needs to be admitted for intractable pain. We have consulted the hospitalist service and she will be seen and admitted for pain management and urologic consultation.
[2016-09-06] MEDS ORDERED: IV FLUIDS COMPLETED PRN (19:30)
--- NOTE | 2016-09-06 19:37 | DIAGNOSTIC IMAGING REPORT ---
KUB CLINICAL HISTORY: Right flank pain. FINDINGS: 2 AP supine abdominal radiographs are correlated with abdominal CT dated 09/04/2016. There is a nonobstructed abdominal bowel gas pattern. A 4 mm obstructing calculus is identified at the right vesicoureteral junction. This was also seen by CT on 09/04/2016. No additional calcifications are identified projecting over either kidney. The bony structures appear intact. The lung bases are clear as imaged. IMPRESSION: 1. A 4 mm obstructing calculus at the right vesicoureteral junction is unchanged in position from 09/04/2016. 2. No additional renal calculi are identified. Electronically signed by: Sean Turpin M.D. 09/06/2016 7:36 PM Dictated Date/Time: 09/06/2016 7:34 PM
[2016-09-06 20:15] VITALS: BP_SYST 116; BP_SYST 123; BP_DIAS 65; BP_DIAS 66; PULSE 96; TEMP 36.9; TEMP 37.2; O2SAT 99; Ht 165.1 cm; Wt 57.8 kg
--- NOTE | 2016-09-06 20:32 | DIAGNOSTIC IMAGING REPORT ---
ULTRASOUND KIDNEYS AND BLADDER CLINICAL HISTORY: Right flank pain. Known obstructing right ureteral calculus. COMPARISON STUDY: Abdominal CT dated 09/04/2016. KUB dated 09/06/2016. TECHNIQUE: Real-time, grayscale, and color flow sonography of the kidneys and bladder is performed. Images are reviewed in the transverse and longitudinal planes. FINDINGS: Kidneys: The kidneys are normal in size and echotexture. The right kidney measures 10.9 cm in length and the left kidney measures 10.6 cm in length. There is moderate right-sided hydroureteronephrosis. No left-sided hydronephrosis is seen. No shadowing renal calculi are identified. There is no sonographic evidence of contour deforming renal mass lesion. Trace left-sided perinephric fluid is noted. Bladder: The partially decompressed bladder is normal in appearance. Only a left ureteral jets was seen. Upper abdomen: Survey images of the upper abdomen show gallbladder distention. The gallbladder was otherwise normal in appearance. No shadowing gallstones were seen. IMPRESSION: 1. There is moderate right hydroureteronephrosis. This is consistent with the patient's known obstructing distal right ureteral calculus. The stone was not seen by ultrasound. 2. There is no left-sided hydronephrosis. 3. The bladder was normal as visualized. Only a left ureteral jet was seen. 4. A distended gallbladder is again seen. Electronically signed by: Sean Turpin M.D. 09/06/2016 8:30 PM Dictated Date/Time: 09/06/2016 8:27 PM
[2016-09-06] MEDS: SODIUM CHLORIDE 0.9% 1000ML 1,000 ML IV SCH (20:50)
--- NOTE | 2016-09-06 23:21 | GENITOURINARY CONSULTATION ---
DATE OF CONSULTATION: 09/06/2016 REASON FOR THE CONSULT: Distal right ureteral stone. HISTORY OF PRESENTATION: The patient is a 46-year-old female, who approximately 6 weeks ago, passed a stone for the first time on the right side and was told she had another renal stone on the right side at that time. She began to have pain and was seen in the Emergency Room with a CAT scan on Thursday and had a similar 4 mm distal right ureteral stone. She was discharged home with pain medicine and Flomax with the hope that she would pass the stone, but has had ongoing pain that has been unrelenting and came back to the Emergency Room today. She has been admitted for pain control and possible intervention. She denies any fevers. She did have some pyuria in the urine and a KUB confirmed persistent presence of the stone. PAST MEDICAL HISTORY: Significant for anxiety which is chronic, headache which is chronic and right shoulder surgery in the past. SOCIAL HISTORY: The patient denies smoking, drug use or alcohol use. She is . ALLERGIES: TO DIPHENHYDRAMINE AND SUMATRIPTAN. MEDICATIONS: At home include; Prilosec 20 mg p.o. q.p.m., Zofran 4 mg q. 6 hours or so, Maxalt 10 mg p.o. q.p.m. and Zoloft 100 mg q.p.m. She also would take Fioricet as needed, Klonopin as needed and has recently been taking [place] 10/325 mg as needed for pain. She takes tramadol and Zanaflex as needed for migraine headaches. REVIEW OF SYSTEMS: Please refer to the chart. The patient denies any chills or fever. She has had no chest pain or shortness of breath. She has had nausea, pain and emesis. She denies any urinary frequency, dysuria, difficulty voiding or urgency. No extremity discomfort. Neurologically, no headache at this time or other neurological symptoms. PHYSICAL EXAMINATION: GENERAL: The patient is a well-developed female, in mild distress. Her pain is controlled at this time with narcotics. She has no difficulties breathing. She has no pedal edema. HEART: Regular rate and rhythm. ABDOMEN: Soft and nontender. She does have right flank pain due to percussion. EXTREMITIES: Unremarkable. NEUROLOGIC: She is alert and oriented without any focal or sensory deficits. ASSESSMENT: Urine does show trace leukocytes. Her white blood cell count is normal. Creatinine is 1.2. KUB shows a 4 mm distal ureteral stone which was present on the CAT scan several days ago. ASSESSMENT: Distal ureteral stone with now 4 days of ongoing pain. The patient has been made nothing by mouth and I will start her on Cipro because she has leukocytosis and we discussed the options which might include ureteroscopy in the morning. I am going to get a KUB in the morning and we will reassess her at that time. If her pain is ongoing and she so decides, we will consider ureteroscopy tomorrow.
[2016-09-06 23:37] VITALS: BP 102/63; PULSE 88; TEMP 37; O2SAT 96
[2016-09-07] VITALS (7 sets, daily range): BP systolic 106–129; BP diastolic 68–80; PULSE 71–89; TEMP 36.5–36.8; O2SAT 97–98
[2016-09-07] MEDS: HYDROmorphone INJ 0.5 MG/0.5 ML SYR IV PRN ×3 (01:46→11:07)
[2016-09-07] MEDS: KETOROLAC TROMETHAMINE 30 MG/ML VIAL IV PRN ×3 (02:29→16:40)
[2016-09-07] MEDS: CIPROFLOXACIN / D5W 400 MG in PREMIXED IN D5W 200 ML IV SCH ×2 (02:31→15:55)
[2016-09-07] MEDS: SODIUM CHLORIDE 0.9% 1000ML 1,000 ML IV SCH ×2 (02:32→10:09)
--- NOTE | 2016-09-07 08:49 | DIAGNOSTIC IMAGING REPORT ---
KUB CLINICAL HISTORY: ureteral stone COMPARISON STUDY: 09/06/2016 FINDINGS: Unchanging calculus right ureterovesical junction. Bowel pattern is nonobstructive. Renal shadows unremarkable. IMPRESSION: Distal right ureteral calculus at the ureterovesical junction. No change from the prior study. Electronically signed by: Mendez Gramajo M.D. 09/07/2016 8:47 AM Dictated Date/Time: 09/07/2016 8:47 AM
--- NOTE | 2016-09-07 09:57 | Family Medicine Progress Note ---
Progress Note Date of Service Sep 07, 2016. Subjective Pt evaluation today including: conversation w/ patient, physical exam, chart review, lab review, review of studies Pain: No complaints of pain this morning, well controlled with IV Toradol Voiding: no voiding problems, no incontinence Patient resting comfortably in bed this morning. Had discussion with Urologist last night, said they would get another KUB in the morning and if she was still having discomfort they would plan for Ureteroscopy. Patient says she can still feel the stone but pain medication keeping the pain under control. Denies n/v, fever, chills, dysuria, hematuria. Constitutional: No chills, No fever, No sweats Respiratory: No cough, No shortness of breath, No wheezing Cardiovascular: No chest pain, No palpitations Abdomen: + pain, No constipation, No diarrhea, No nausea, No vomiting Female : + see HPI, No dysuria, No hematuria, No incontinence, No urinary frequency Medications Current Inpatient Medications Medications (Trade) Dose Ordered Sig/Rosa Route Start Time Stop Time Status Last Admin Dose Admin Acetaminophen (Tylenol Tab) 650 mg Q4H PRN PO 09/06/16 18:30 10/06/16 18:29 Al Hydrox/Mg Hydrox/Simethicone (Maalox Max Susp) 15 ml Q4H PRN PO 09/06/16 18:30 10/06/16 18:29 Magnesium Hydroxide (Milk Of Magnesia Susp) 30 ml Q6H PRN PO 09/06/16 18:30 10/06/16 18:29 Ondansetron HCl 4 mg 4 mg Q6H PRN IV 09/06/16 18:30 10/06/16 18:29 Sodium Chloride (Nss 1000ml) 1,000 ml @ 125 mls/hr Q8H IV 09/06/16 18:30 10/06/16 18:29 09/07/16 02:32 125 MLS/HR Hydromorphone HCl (Dilaudid Inj) 0.5 mg Q2HWA PRN IV 09/06/16 18:30 09/20/16 18:29 09/07/16 05:37 0.5 MG Ketorolac Tromethamine (Toradol Inj) 30 mg Q6H PRN IV 09/06/16 23:00 09/11/16 22:59 09/07/16 09:01 30 MG Miscellaneous 1 ea 1 ea PRN PRN N/A 09/06/16 19:30 09/06/17 19:29 Ciprofloxacin/ Dextrose/Prmx (Cipro / D5w/ Premixed D5W) 200 ml @ 100 mls/hr Q12H IV 09/07/16 02:00 09/17/16 01:59 09/07/16 02:31 100 MLS/HR Objective Vital Signs Date Time Temp Pulse Resp B/P Pulse Ox O2 Delivery O2 Flow Rate FiO2 09/07/16 07:36 36.8 76 16 106/68 98 Room Air 09/06/16 23:48 Room Air 09/06/16 23:37 37.0 88 14 102/63 96 Room Air 09/06/16 20:15 37.2 96 16 123/66 99 Room Air 09/06/16 20:15 36.9 16 116/65 Room Air 09/06/16 19:38 86 16 116/65 99 Room Air 09/06/16 18:37 91 16 124/69 98 Room Air 09/06/16 16:42 36.9 99 20 122/68 98 Room Air Physical Exam General Appearance: WD/WN, no apparent distress Respiratory/Chest: chest non-tender, lungs clear, normal breath sounds Cardiovascular: regular rate, rhythm, no edema, no gallop, no JVD, no murmur Abdomen: normal bowel sounds, soft, + tenderness (Right sided abdominal tenderness to palpation) Extremities: non-tender, no calf tenderness Neurologic/Psychiatric: alert, normal mood/affect, oriented x 3 Notes: : Right sided CVA Tenderness Laboratory Results Results Past 24 Hours Test 09/06/16 16:55 09/06/16 17:20 Range/Units Urine Color YELLOW Urine Appearance CLEAR CLEAR Urine pH 5.0 4.5-7.5 Urine Specific [place] 1.017 1.000-1.030 Urine Protein NEG NEG Urine Glucose (UA) NEG NEG Urine Ketones TRACE NEG Urine Occult Blood 2+ NEG Urine Nitrite NEG NEG Urine Bilirubin NEG NEG Urine Urobilinogen NEG NEG Urine Leukocyte Esterase TRACE NEG Urine WBC (Auto) 5-10 0-5 /hpf Urine RBC (Auto) 0-4 0-4 /hpf Urine Hyaline Casts (Auto) 1-5 0-5 /lpf Urine Epithelial Cells (Auto) >30 0-5 /lpf Urine Bacteria (Auto) 1+ NEG Urine Yeast (Auto) NONE PRSENT White Blood Count 5.53 4.8-10.8 K/uL Red Blood Count 3.99 4.2-5.4 M/uL Hemoglobin 12.7 12.0-16.0 g/dL Hematocrit 36.9 37-47 % Mean Corpuscular Volume 92.5 80-100 fL Mean Corpuscular Hemoglobin 31.8 25-34 pg Mean Corpuscular Hemoglobin Concent 34.4 32-36 g/dl Platelet Count 123 130-400 K/uL Mean Platelet Volume 9.9 7.4-10.4 fL Neutrophils (%) (Auto) 81.0 % Lymphocytes (%) (Auto) 11.2 % Monocytes (%) (Auto) 5.8 % Eosinophils (%) (Auto) 1.6 % Basophils (%) (Auto) 0.2 % Neutrophils # (Auto) 4.48 1.4-6.5 K/uL Lymphocytes # (Auto) 0.62 1.2-3.4 K/uL Monocytes # (Auto) 0.32 0.11-0.59 K/uL Eosinophils # (Auto) 0.09 0-0.5 K/uL Basophils # (Auto) 0.01 0-0.2 K/uL RDW Standard Deviation 40.6 36.4-46.3 fL RDW Coefficient of Variation 11.9 11.5-14.5 % Immature Granulocyte % (Auto) 0.2 % Immature Granulocyte # (Auto) 0.01 0.00-0.02 K/uL Sodium Level 141 136-145 mmol/L Potassium Level 4.1 3.5-5.1 mmol/L Chloride Level 108 98-107 mmol/L Carbon Dioxide Level 23 21-32 mmol/L Anion Gap 10.0 3-11 mmol/L Blood Urea Nitrogen 12 7-18 mg/dl Creatinine 1.20 0.60-1.20 mg/dl Est Creatinine Clear Calc Drug Dose 51.6 ml/min Estimated GFR () 61.9 Estimated GFR (Non- 53.4 BUN/Creatinine Ratio 9.8 10-20 Random Glucose 96 70-99 mg/dl Calcium Level 8.3 8.5-10.1 mg/dl Microbiology Results 09/06/16 Urine Culture, Received Pending Assessment and Plan Patient is a 46 year old female that presents with a 4mm right sided ureteral stone with hydronephrosis 1) 4mm Right Sided Ureteral Stone with Hydronephrosis - IV NS 125ml/hr - IV Toradol 30mg q6 - 0.5mg Dilaudid q2h - Renal US in ED 09/06: Moderate right sided hydroureteronephrosis - KUB in ED 09/06: 4mm obstructing calculus @ right vesicoureteral junction - KUB this morning: Unchanged from KUB on 09/06 - Urology Consult: - Started Patient on Cipro 2/2 leukocytosis, If pain ongoing discussed ureteroscopy - Ciprofloxacin 400mg q12 IV 2) Nausea - Zofran 3) Diet - NPO for procedure this morning - Regular Diet if tolerated after procedure or if decide to manage with just pain control 4) Code Status - Full Resuscitation
--- NOTE | 2016-09-07 10:08 | Progress Note ---
Subjective Date of Service: Sep 07, 2016. Subjective Pt evaluation today including: conversation w/ patient, physical exam, chart review, lab review, review of studies pt with ongoig pain .Stone still present on kub . Pt wishes to proceed with ureteroscopy. Problem List Medical Problems: (1) Hydronephrosis with urinary obstruction due to ureteral calculus Status: Acute (2) Kidney stone Status: Acute (3) Kidney stone on right side Status: Acute Objective Vital Signs Date Time Temp Pulse Resp B/P Pulse Ox O2 Delivery O2 Flow Rate FiO2 09/07/16 07:36 36.8 76 16 106/68 98 Room Air 09/06/16 23:48 Room Air 09/06/16 23:37 37.0 88 14 102/63 96 Room Air 09/06/16 20:15 37.2 96 16 123/66 99 Room Air 09/06/16 20:15 36.9 16 116/65 Room Air 09/06/16 19:38 86 16 116/65 99 Room Air 09/06/16 18:37 91 16 124/69 98 Room Air 09/06/16 16:42 36.9 99 20 122/68 98 Room Air Physical Exam Comments: r flank pain Laboratory Results Last 24 Hours Test 09/06/16 16:55 09/06/16 17:20 Urine Color YELLOW Urine Appearance CLEAR Urine pH 5.0 Urine Specific [place] 1.017 Urine Protein NEG Urine Glucose (UA) NEG Urine Ketones TRACE Urine Occult Blood 2+ Urine Nitrite NEG Urine Bilirubin NEG Urine Urobilinogen NEG Urine Leukocyte Esterase TRACE Urine WBC (Auto) 5-10 /hpf Urine RBC (Auto) 0-4 /hpf Urine Hyaline Casts (Auto) 1-5 /lpf Urine Epithelial Cells (Auto) >30 /lpf Urine Bacteria (Auto) 1+ Urine Yeast (Auto) White Blood Count 5.53 K/uL Red Blood Count 3.99 M/uL Hemoglobin 12.7 g/dL Hematocrit 36.9 % Mean Corpuscular Volume 92.5 fL Mean Corpuscular Hemoglobin 31.8 pg Mean Corpuscular Hemoglobin Concent 34.4 g/dl Platelet Count 123 K/uL Mean Platelet Volume 9.9 fL Neutrophils (%) (Auto) 81.0 % Lymphocytes (%) (Auto) 11.2 % Monocytes (%) (Auto) 5.8 % Eosinophils (%) (Auto) 1.6 % Basophils (%) (Auto) 0.2 % Neutrophils # (Auto) 4.48 K/uL Lymphocytes # (Auto) 0.62 K/uL Monocytes # (Auto) 0.32 K/uL Eosinophils # (Auto) 0.09 K/uL Basophils # (Auto) 0.01 K/uL RDW Standard Deviation 40.6 fL RDW Coefficient of Variation 11.9 % Immature Granulocyte % (Auto) 0.2 % Immature Granulocyte # (Auto) 0.01 K/uL Sodium Level 141 mmol/L Potassium Level 4.1 mmol/L Chloride Level 108 mmol/L Carbon Dioxide Level 23 mmol/L Anion Gap 10.0 mmol/L Blood Urea Nitrogen 12 mg/dl Creatinine 1.20 mg/dl Est Creatinine Clear Calc Drug Dose 51.6 ml/min Estimated GFR () 61.9 Estimated GFR (Non- 53.4 BUN/Creatinine Ratio 9.8 Random Glucose 96 mg/dl Calcium Level 8.3 mg/dl Assessment and Plan proceed to ureteroscopy all questions regarding risks options and alternatives discussed and all questions answered Continued [facility] stay due to: inadequate oral pain control
[2016-09-07] MEDS ORDERED: MIDAZOLAM HCL 1 MG/ML 2ML VIAL ONE (13:03)
[2016-09-07] MEDS ORDERED: FENTANYL CITRATE INJ 50 MCG/1 ML 2 ML VIAL ONE (13:03)
[2016-09-07] MEDS ORDERED: ONDANSETRON INJ 2 MG/ML 2 ML VIAL ONE (13:34)
[2016-09-07] MEDS ORDERED: DEXAMETHASONE SOD INJ 4 MG/ML VIAL ONE (13:34)
[2016-09-07] MEDS ORDERED: LIDOCAINE HCL 2% 2 ML VIAL (20MG/ML) ONE (13:34)
[2016-09-07] MEDS ORDERED: PROPOFOL IV EMULSION 10 MG/ML 20 ML VIAL IV ONE (13:34)
--- NOTE | 2016-09-07 14:25 | [facility] Post Operative Brief Note ---
Immediate Operative Summary Operative Date Sep 07, 2016. Pre-Operative Diagnosis Distal right ureteral stone Post-Operative Diagnosis Same as preop Procedure(s) Performed Cystoscopy, Right Ureteroscopy, Stone Extraction, Placement of Right Ureteral Stent Surgeon Dr. Flores Director Educational Radio Surgeon(s) None Estimated Blood Loss 20 ml Findings distal stricture just above uvj. , Dilated with balloon and had 3 mm stone extracted Specimens A. Right Ureteral Stone for Analysis Drains 5 by 24 stent Disposition Recovery Room / PACU
[2016-09-07] MEDS ORDERED: PROMETHAZINE HCL INJ 12.5 MG in SODIUM CHLORIDE 0.9% 50ML 50 ML IV PRN (14:45)
[2016-09-07] MEDS ORDERED: FENTANYL CITRATE INJ 50 MCG/1 ML 2 ML VIAL IV PRN (14:45)
[2016-09-07] MEDS ORDERED: ATROPINE SULFATE 0.1 MG/ML 5ML SYR IV PRN (14:45)
[2016-09-07] MEDS ORDERED: ONDANSETRON INJ 2 MG/ML 2 ML VIAL IV PRN (14:45)
--- NOTE | 2016-09-07 14:48 | OPERATIVE REPORT ---
DATE OF OPERATION: 09/07/2016 PREOPERATIVE DIAGNOSIS: Distal right ureteral stone. POSTOPERATIVE DIAGNOSIS: Same. PROCEDURE: Right ureteroscopy, stone extraction, balloon dilation of distal ureteral stricture and stone extraction and stent placement. SURGEON: Dr. Mu Flores. ANESTHESIA: General. INDICATIONS: The patient is a 46-year-old female who previously passed 1 stone on the right side about 6 weeks ago and no other stones, has had 5 days of ongoing pain from a distal right ureteral stone with high grade obstruction who presents now for definitive treatment. We discussed the procedure preoperatively and I explained to her that I may have to place a stent if I was unable to get up to the stone. DESCRIPTION OF THE PROCEDURE: The patient was taken to the operating room. She had Venodyne stockings placed, was given antibiotics last night, Cipro and a urine culture is pending. She was placed in dorsal lithotomy position after general anesthesia was given and prepped and draped in the usual sterile fashion. A 21-Upper Sorbian cystoscope was passed per urethra and I was unable to pass the Dual-Flex guidewire beyond the stone because it was so impacted in the distal ureter. However, I was able to with the cystoscope and some difficulty, I pushed the Dual-Flex guidewire beyond the stone after the scope was placed inside the ureteral orifice. There was clearly a narrowed area though I was unable to pass the scope through, so I replaced after the guidewire was confirmed to be, what appeared to be in the renal pelvis. I was able to remove the ureteroscope, leaving the guidewire in place and replaced the cystoscope over the guidewire and passed a 4 cm balloon over the wire up to what I thought was a stone on the fluoroscopy. I inflated this to about 8-9 cm maximum pressure and had good dilation of what appeared to be the distal ureter then deflated this after 2 minutes, left the wire in place and took the cystoscope out and replaced ureteroscope, I could see the stone. The laser unfortunately was unable to get working, but I was able to grasp the stone with a 3-prong grasper and remove it. The distal ureter clearly was traumatized and I could see the wire, but it was difficult to clearly see the passage beyond the proximal ureter and only 1 stone was seen on CT and KUB, so I elected to terminate the procedure and replaced the cystoscope over the guidewire that had been left in place. I passed a 5 Upper Sorbian 24 cm stent over the wire, confirmed this position under fluoroscopy and then into the patient's bladder and transferred to the recovery room in stable condition. I attest to the content of the Intraoperative Record and any orders documented therein. Any exceptio ns are noted below.
--- NOTE | 2016-09-07 14:52 | DIAGNOSTIC IMAGING REPORT ---
Abdomen KUB CLINICAL HISTORY: RIGHT STENT stent position/placement TECHNIQUE: Image intensifier COMPARISON STUDY: None FINDINGS: Right ureteral stent positioned in good position within the right urinary tract IMPRESSION: Good position of a right ureteral stent Electronically signed by: Mendez Gramajo M.D. 09/07/2016 2:50 PM Dictated Date/Time: 09/07/2016 2:50 PM
--- NOTE | 2016-09-07 14:58 | Anesthesiology Progress Note ---
Anesthesia Post Op Note Date & Time Sep 07, 2016 at 14:58 Vital Signs Pain Intensity: 0 Vital Signs Past 12 Hours Date Time Temp Pulse Resp B/P Pulse Ox O2 Delivery O2 Flow Rate FiO2 09/07/16 14:50 79 16 130/77 100 Mask 10 09/07/16 14:40 77 16 122/66 100 Mask 10 09/07/16 14:31 36.8 85 16 119/72 100 Mask 10 09/07/16 07:45 98 Room Air 09/07/16 07:36 36.8 76 16 106/68 98 Room Air Notes Mental Status: alert / awake / arousable, participated in evaluation Pt Amnestic to Procedure: Yes Nausea / Vomiting: adequately controlled Pain: adequately controlled Airway Patency, RR, SpO2: stable & adequate BP & HR: stable & adequate Hydration State: stable & adequate Anesthetic Complications: no major complications apparent
--- NOTE | 2016-09-07 18:27 | Discharge Instructions ---
Discharge Instructions Admission Reason for Admission: Ureteral Stone With Hydronephrosis Discharge Discharge Diagnosis / Problem: Ureteral Stone with Hydronephrosis Discharge Goals Goal(s): Decrease discomfort, Improve function Activity Recommendations Activity Limitations: per Instructions/Follow-up section Lifting Limitations: gradually increase as tolerated Exercise/Sports Limitations: gradually increase as tolerated Shower/Bathe: no limitations . Instructions / Follow-Up Instructions / Follow-Up - Call to make a follow up appointment with Dr. Flores's office tomorrow morning , schedule stent removal in 10-14 days - Take Ciprofloxacin 500mg (1 tab) twice daily for 2 days for possible Urinary Tract Infection - Ketorolac 10mg (1 tab) every 4-6 hours for pain - [place] 5mg/325mg (1 tab) every 6 hours for pain - Zofran ODT 4mg (1-2 Tab) every 8 hours for nausea as needed - Return to hospital with any acute fevers or worsening pain Current Hospital Diet Patient's current hospital diet: Regular Diet Discharge Diet Recommended Diet: Regular Diet Procedures Procedures Performed: Cystoscopy, Right Ureteroscopy, Stone Extraction, Placement of Right Ureteral Stent Pending Studies Studies pending at discharge: no Medical Emergencies . Who to Call and When: Medical Emergencies: If at any time you feel your situation is an emergency, please call 911 immediately. . Non-Emergent Contact Non-Emergency issues call your: Primary Care Provider . . "Provider Documentation" section prepared by Ki Walters. VTE Core Measure Inpt VTE Proph given/why not?: SCD's
[2016-09-07] MEDS ORDERED: KETO10TA PO ×2 (18:38)
[2016-09-07] MEDS ORDERED: CIPR-255 PO ×2 (18:38)
[2016-09-07] MEDS ORDERED: HYDR-5688 PO ×2 (18:38)
--- NOTE | 2016-09-09 00:39 | Discharge Summary ---
Discharge Summary Date of Service Sep 09, 2016. (Ki Walters MD) Discharge Summary Admission Date: Sep 06, 2016 at 18:36 Discharge Date: Sep 07, 2016 Discharge Disposition: Home Principal Diagnosis: Right Ureteral Stone with Hydronephrosis Immunizations: Have You Had Influenza Vaccine: Yes History of Tetanus Vaccine?: Yes Procedures: Right Sided Ureteroscopy (Ki Walters MD) Medication Reconciliation New Medications: Ciprofloxacin Hcl (Cipro) 500 Mg Tab 1 TAB PO BID for 2 Days, #4 TAB Hydrocodone/Acetaminophen 5MG/325MG ([place] 5MG/325MG) Tab 1 TAB PO TID PRN for Pain for 3 Days, #10 TAB PRN PAIN Ketorolac Tromethamine (Toradol) 10 Mg Tab 1 TAB PO Q6H PRN for Pain for 5 Days, #20 TAB Continued Medications: Hkhzyrykwd-Zcsucvdirinur-Gekyx (Fioricet) 1 Cap Cap 1 CAP PO DAILY PRN for Migraine Clonazepam (Klonopin) 0.5 Mg Tab 0.5 MG PO DAILY PRN for Anxiety, TAB Omeprazole (Prilosec) 20 Mg Cap 20 MG PO QPM, CAP Ondasetron Odt (Zofran Odt) 4 Mg Tab 4 MG SL Q6H for Nausea, #20 TAB Sertraline Hcl (Zoloft) 100 Mg Tab 100 MG PO QPM, TAB Tizanidine (Zanaflex) 2 Mg Cap 2 MG PO DAILY PRN for Migraine, CAP Tramadol (Ultram) 50 Mg Tab 1-2 TAB PO TID PRN for Migraine, TAB Discontinued Medications: Hydrocodone/Acetaminophen 10MG/325MG ([place] 10MG/325MG) Tab 1-2 TABS PO Q6H PRN for Pain, TAB Rizatriptan Benzoate (Maxalt) 10 Mg Tab 10 MG PO prn, TAB Discharge Exam Review of Systems: Constitutional: No chills, No fever Respiratory: No cough, No shortness of breath, No wheezing Cardiovascular: No chest pain, No edema, No palpitations Abdomen: + pain (Right sided abdominal pain), No constipation, No diarrhea, No nausea, No vomiting Genitourinary - Female: + dysuria, + hematuria, No urinary frequency, No urinary urgency Endocrine: No excessive urination, No fatigue Physical Exam: General Appearance: WD/WN, no apparent distress, + pertinent finding (: Right Sided CVA Tenderness) Respiratory/Chest: chest non-tender, lungs clear, normal breath sounds Cardiovascular: regular rate, rhythm, no gallop, no murmur Abdomen / GI: normal bowel sounds, non tender, soft Extremities: no calf tenderness, non-tender Neurologic/Psychiatric: alert, oriented x 3 (Ki Walters MD) Hospital Course Patient is a 46 year old female that presented on Thursday evening with right sided CVA tenderness and abdominal pain 2/2 to a right sided ureteral stent. The patient was previously in the ED on Thursday with similar pain and CT showed a 4mm stone close to the ureteovesicular junction along with hydronephrosis. The patient had a previous history of a kidney stone of similar size that passed spontaneously so she was discharged home with pain medications. The patients pain continued to worsen and she returned to the ED on Thursday night. She was seen by Urology and if she continued to have pain overnight a uteroscopy was planned for Thursday. Despite adequate pain control overnight with Toradol and IV fluids, the pain continued to persist and the stone was removed Thursday with Utereoscopy with stent placement. The patient was tolerated the procedure well and was discharged home after the procedure with Narcan, Toradol, and Ciprofloxacin due to infectious appearance of her UA. The patient will follow up for stent removal with Urology in the next 2 weeks. Total Time Spent: Greater than 30 minutes This includes examination of the patient, discharge planning, medication reconciliation, and communication with other providers. (Ki Walters MD) Resident Physician Supervision Note: I was present with Dr. Walters during the history and exam. I discussed the case with the resident and agree with the findings and plan as documented in the note. Any exceptions or clarifications are listed here: Documented By: Long Galvan Total Time Spent: Less than 30 minutes (Long Galvan,D.O.) Discharge Instructions Please refer to the electronic Patient Visit Report (Discharge Instructions) for additional information. (Ki Walters MD) Additional Copies To Mary Alice Coppola M.D.
== END 2016-09-07 19:25 | disposition home or self-care (01) | DRG 669 ==
LOC: ENRESERVDT → ENRESERVTM → C.EDB 16:40 → C.MSN 18:29 → UNDOADMOB 18:29 → C.MSN 18:36
PROVIDERS: ADMIT Student in an Organized Health Care Education/Training Program; ATTEND Family Medicine
PROC: 0TC68ZZ Extirpation of Matter from Right Ureter, Via Natural or Artificial Opening Endoscopic (ICD-10-PCS; principal; 2016-09-07 13:00)
PROC: 0T768DZ Dilation of Right Ureter with Intraluminal Device, Via Natural or Artificial Opening Endoscopic (ICD-10-PCS; principal; 2016-09-07 13:00)
DX: N20.0 Calculus of kidney (principal); N13.30 Unspecified hydronephrosis; F41.9 Anxiety disorder, unspecified; F17.210 Nicotine dependence, cigarettes, uncomplicated; Z80.0 Family history of malignant neoplasm of digestive organs; Z82.0 Family history of epilepsy and other diseases of the nervous system; N13.1 Hydronephrosis with ureteral stricture, not elsewhere classified; Z79.899 Other long term (current) drug therapy

== ENCOUNTER → 2016-11-10 | Outpatient (CLI) | payer BC ==
[~2016-11-10] MED LIST changes: +CIPR-255 PO; -HYDRTAB32 PO; -OXYC-57 PO; -RIZA10TA18 PO
--- NOTE | 2016-11-10 14:37 | DIAGNOSTIC IMAGING REPORT ---
RENAL ULTRASOUND CLINICAL HISTORY: Nephrolithiasis. COMPARISON STUDY: CT of the abdomen and pelvis September 04, 2016, renal ultrasound September 06, 2016 and KUB September 17, 2016. TECHNIQUE: Sonography of the kidneys and the urinary bladder was performed. FINDINGS: The right kidney measures 10 x 3.7 x 3.8 cm and the left measures 10 x 4.5 x 3.8 cm. No calculi are identified by sonography. There is mild right pelvicaliectasis which has markedly improved since exam of September 06, 2016. The bladder suboptimally assessed due to underdistention. Renal echogenicity, size and cortical thickness are normal. IMPRESSION: 1. Mild right collecting system dilatation which has markedly improved since study of September 06, 2016. 2. No calculi identified by sonography. 3. Decompressed bladder. Electronically signed by: Naldo Pereyra M.D. 11/10/2016 2:36 PM Dictated Date/Time: 11/10/2016 2:34 PM
== END | disposition home or self-care (01) ==
LOC: C.ULTR 13:44
PROVIDERS: ATTEND Urology
DX: N20.0 Calculus of kidney (principal)

== ENCOUNTER → 2017-04-06 | Outpatient (CLI) | payer BC ==
[~2017-04-06] MED LIST changes: -ONDA4TAB10 SL
--- NOTE | 2017-04-07 12:22 | MAMMOGRAPHY REPORT ---
BILATERAL DIGITAL SCREENING MAMMOGRAM TOMOSYNTHESIS WITH CAD: 04/06/2017 CLINICAL HISTORY: Routine screening. Patient has no complaints. TECHNIQUE: Breast tomosynthesis in addition to standard 2D mammography was performed. Current study was also evaluated with a Computer Aided Detection (CAD) system. COMPARISON: Comparison is made to exams dated: 07/17/2016 mammogram, 04/02/2016 mammogram, 03/19/2015 m ammogram, 03/17/2014 mammogram, 03/16/2013 mammogram - [facility], and 11/08/2008. BREAST COMPOSITION: The tissue of both breasts is heterogeneously dense, which may obscure small mas ses. FINDINGS: No suspicious mass, architectural distortion or cluster of microcalcifications is seen. IMPRESSION: ACR BI-RADS CATEGORY 1: NEGATIVE There is no mammographic evidence of malignancy. A 1 year screening mammogram is recommended. The pa tient will receive written notification of the results. Approximately 10% of breast cancers are not detected with mammography. A negative mammographic report should not delay biopsy if a clinically suggestive mass is present. Leonor chamberlain/susan:04/06/2017 16:31:49 Fire Support Specialist: Mary Alice GANN(Nas)(Samanta)(BD), [facility] letter sent: Normal 1/2 BI-RADS Code: ACR BI-RADS Category 1: Negative
== END | disposition home or self-care (01) ==
LOC: C.MAMM 15:02
PROVIDERS: ATTEND Family Medicine
DX: Z12.31 Encounter for screening mammogram for malignant neoplasm of breast (principal)

== ENCOUNTER → 2017-11-09 | Outpatient (CLI) | payer BC | END | disposition home or self-care (01) | LOC: C.PAPS 09:56 | PROVIDERS: ATTEND Obstetrics & Gynecology | DX: N87.0 Mild cervical dysplasia (principal); Z01.411 Encounter for gynecological examination (general) (routine) with abnormal findings; R87.612 Low grade squamous intraepithelial lesion on cytologic smear of cervix (LGSIL) ==

== ENCOUNTER → 2017-11-19 | Outpatient (CLI) | payer BC ==
--- NOTE | 2017-11-19 13:39 | DIAGNOSTIC IMAGING REPORT ---
ABDOMEN LIMITED (US) CLINICAL HISTORY: RUQ PAIN COMPARISON STUDY: CT scan performed September 2016 FINDINGS: The pancreas appears sonographically normal. No gallstones are visualized. There is suspected adenomyomatosis.. There are no focal hepatic masses. There is no ductal dilatation. The common bile duct measures 6 mm. There is minimal. The right renal pelvis. IMPRESSION: 1. Mild fullness the right renal collecting system 2. Suspected mild adenomyomatosis of the gallbladder. No calculi identified. 3. No evidence of ductal dilatation Electronically signed by: Uziel England M.D. 11/19/2017 1:37 PM Dictated Date/Time: 11/19/2017 1:34 PM
== END | disposition home or self-care (01) ==
LOC: C.ULTR 12:44
PROVIDERS: ATTEND Nurse Practitioner Family
DX: R10.11 Right upper quadrant pain (principal)